=== PATIENT | female | born 1990 | race Caucasian/White ===

== ENCOUNTER 2022-12-23 08:22 | Observation (INO) ==
[2022-12-23] MEDS ORDERED: LACTATED RINGER'S 1,000 ML IV PRN (08:53)
[2022-12-23] MEDS ORDERED: TERBUTALINE SULFATE 1 MG/ML VIAL SQ ONE (09:04)
[2022-12-23 09:31] LABS: Hematocrit (blood only) 35.6 % (37.0-47.0); Hemoglobin 11.7 g/dl (12.0-16.0); Mean Corpuscular Hemoglobin 25.5 pg (25.0-34.0); Mean Corpuscular Hgb Conc 32.9 g/dL (32.0-36.0); Mean Corpuscular Volume 77.7 fL (80.0-100.0); Mean Platelet Volume 10.9 fL (9.4-12.4); Platelet Count 207 K/uL (130-400); RDW Coefficient of Variation 13.4 % (11.5-14.5); RDW Standard Deviation 37.7 fL (36.4-46.3); Red Blood Count 4.58 M/uL (4.20-5.40); White Blood Count 9.13 K/ul (4.8-10.8)
--- NOTE | 2022-12-23 12:16 | History & Physical Report ---
Date of Service December 23, 2022 Assessment & Plan (1) Unstable lie: Plan: Patient was prepared for external cephalic version, consented, given terbutaline, and was prepped for the procedure. Then ultrasound confirmed cephalic presentation. Then the patient was monitored by external monitor. Approximately 1 hour later, I returned to patient's room to recheck presentation of fetus. The fetus had moved to a breech presentation, with head in maternal RUQ. At this point, given the unstable lie, patient elected against an attempt at ECV, thinking the baby was likely to move again before delivery anyway. I scheduled a with Labor & Delivery 01/08, and we will plan to recheck position at that point. If cephalic, then might consider attempt at vaginal delivery, if breech might either consider going directly to or an attempt at ECV that day. Patient is agreeable with this plan. Advised that she present immediately to L&D if in labor, as we will need to confirm position to determine delivery plans. She is agreeable. Admission and Anticipated Discharge Date Admission Date: December 23, 2022 History of Present Illness Chief Complaint: unstable lie Primary Care Provider: RAMIRO Grider 32yo @ 38 11/28, scheduled for external cephalic version today. and Delivery Plans Obesity (BMI between 35-39 @ beginning of ) *Growth US @ 32 wks--efw >98, AC 90 repeat at 36 weeks *Weekly NSTs @ 36wks DELFIN 1 on colpo *Recommend PPX pap smear Rhogam given 10/22/22 - [place] covid x 2. no boosters, recommend. Allergies Allergy/AdvReac Type Severity Reaction Status Date / Time amoxicillin Allergy hives Verified 12/23/22 09:00 Penicillins Allergy hives Verified 12/23/22 09:00 Home Medications Medication Instructions Recorded Confirmed Type prenat.vits,vanessa,ltp-drsr-nmomi 1 tab PO DAILY 05/18/22 12/23/22 History sertraline 25 mg tablet (Zoloft) 25 mg PO DAILY 09/01/22 12/23/22 History Patient History Surgical History S/P wisdom tooth extraction Social History (Updated 05/18/22 @ 17:29 by Elizabeth Jain) Smoking Status: Never smoker Second Hand Exposure: No; Do You Dip or Chew Tobacco: No; Tobacco Cessation Education Requested by Patient: No Hx Alcohol Use: No Hx Substance Use: No Preferred Language: Occitan Communication Ability: Effective [facility] Medical Specialist Required: No Beliefs That Will Affect Care: None marital status: Single marital status details: Ruben (34) [phone] Current Living Situation: Family Current Living Situation Comment: Pt lives with her 3 Donavan ol[address]a [place], [place] current occupational status: employed current occupation: Admin Assist Other Information That Helps Us Care for You: No Feels Safe at Home: Yes Safety Concerns: Feels Safe At This Time Assistive Devices: None Physical Exam Physical Exam: FHT Cat 1 [place] none Limited bedside ultrasound: cephalic presentation, anterior/fundal placenta, + movement and + cardiac activity. Results & Data ([facility]) Vital Signs (Past 12 Hours) Vital Signs Temp Pulse Resp BP Pulse Ox O2 Del Method 12/23/22 11:02 110 H 99 12/23/22 10:57 94 12/23/22 10:57 105 H 12/23/22 10:57 94 H 94 12/23/22 10:52 113 H 92 12/23/22 10:47 128 H 93 12/23/22 10:42 108 H 95 12/23/22 10:39 99 H 93 12/23/22 10:37 107 H 93 12/23/22 10:32 134 H 93 12/23/22 10:31 148 H 94 12/23/22 10:27 136 H 93 12/23/22 10:25 136 H 92 12/23/22 10:22 121 H 92 12/23/22 10:17 124 H 94 12/23/22 10:14 131 H 94 12/23/22 10:12 133 H 93 12/23/22 10:07 133 H 94 12/23/22 10:06 132 H 94 12/23/22 10:02 134 H 94 12/23/22 10:00 135 H 92 12/23/22 09:57 152 H 96 12/23/22 09:55 138 H 93 12/23/22 09:52 118 H 95 12/23/22 09:49 148 H 93 12/23/22 09:47 148 H 95 12/23/22 09:43 156 H 94 12/23/22 09:42 157 H 95 12/23/22 09:37 143 H 96 12/23/22 09:28 96 H 126/77 12/23/22 08:34 101 H 121/78 12/23/22 08:34 36.8 C 18 Room Air Coding Level of Care Code 72263 Office/Outpt Visit, Est Diagnoses Unstable lie O32.0XX0
== END 2022-12-23 11:35 | disposition home or self-care (01) ==
LOC: OPB 08:22 → 4S1 08:23 → INTOOBSV 08:53

== ENCOUNTER 2022-12-28 23:08 | Inpatient (IN) ==
[2022-12-28] MEDS ORDERED: LACTATED RINGER'S 1,000 ML IV SCH (23:45)
--- NOTE | 2022-12-28 23:46 | History & Physical Report ---
Date of Service December 28, 2022 Assessment & Plan (1) Breech presentation: Plan: Breech confirmed with ultrasound she is definitely ruptured 4 cm recommend section section. The patient was counseled to the nature of the procedure including alternatives such as labor. Risks were discussed including bleeding infection injury to bowel bladder ureter vessels and even baby. Deep Vein thrombosis, pulmonary embolus discussed. Breakdown of incision reviewed. Deep vein thrombosis pulmonary embolus hernia and failure of the incision to heal were discussed Patient verbalized understanding of this and was given ample time to ask questions History of Present Illness Primary Care Provider: RAMIRO Grider SHAILESH Calculator Estimated Delivery Date Method Current WG Current Estimate 01/12/23 Ultrasound #1 37w 6d Other Estimates 12/29/22 LMP (Certain) 39w 6d LMP: 03/24/22 : 5 Full term: 3 Premature: 0 Total Number of Induced Abortions: 0 Total Number of Spontaneous Abortions: 1 Ectopics: 0 Multiple births: 0 Number of Living Children: 3 and Delivery Plans Obesity (BMI between 35-39 @ beginning of ) *Growth US @ 32 wks--efw >98, AC 90 repeat at 36 weeks *Weekly NSTs @ 36wks DELFIN 1 on colpo *Recommend PPX pap smear Rhogam given 10/22/22 - [place] covid x 2. no boosters, recommend. Unstable Lie - plan for CS 01/08/23 with Roberta Melissa assist (if breech) Allergies Allergy/AdvReac Type Severity Reaction Status Date / Time amoxicillin Allergy hives Verified 12/28/22 13:17 Penicillins Allergy hives Verified 12/28/22 13:17 Home Medications Medication Instructions Recorded Confirmed Type prenat.vits,vanessa,nit-vshg-odatk 1 tab PO DAILY 05/18/22 12/28/22 History sertraline 25 mg tablet (Zoloft) 25 mg PO DAILY 09/01/22 12/28/22 History Patient History Surgical History S/P wisdom tooth extraction Social History (Updated 05/18/22 @ 17:29 by Elizabeth Jain) Smoking Status: Never smoker Second Hand Exposure: No; Hx Alcohol Use: No Hx Substance Use: No Preferred Language: Czech Communication Ability: Effective [employer] [facility] Assistant Required: No Beliefs That Will Affect Care: None marital status: Single marital status details: Ruben (34) [phone] Current Living Situation: Significant Other Current Living Situation Comment: Pt lives with her 3 Donavan olvera [place], [place] current occupational status: employed current occupation: Admin Assist Other Information That Helps Us Care for You: No Feels Safe at Home: Yes Safety Concerns: Feels Safe At This Time Assistive Devices: None Review of Systems as per Subjective / HPI Physical Exam Constitutional: WD/WN, vitals as above well developed and well nourished Respiratory: normal respiratory effort, lungs clear to auscultation normal respiratory effort Cardiovascular: RRR, no murmur, no edema Gastrointestinal (Abdomen): normal bowel sounds, soft, nontender, no hepatosplenomegaly Results & Data ([facility]) Vital Signs (Past 12 Hours) Vital Signs Temp Pulse Resp BP 12/28/22 23:26 98.1 F 20 12/28/22 23:23 114 H 137/90 Coding Level of Care Code None Diagnoses Breech presentation O32.1XX0
--- NOTE | 2022-12-29 00:08 | Anesthesiology Consultation ---
Date of Service December 29, 2022 Assessment & Plan Chart Review Chart Review: Acceptable Risk for Surgery and Patient NOT seen in Pre Admission Testing plt 207 on 12/23/22 Consults Requested none History Surgery Operation Date: 12/29/22 00:15 Proposed Procedures p Section in LD - Bisi. Alberto Robbins MD, FACOG Height/Weight Height: 5 ft 3 in Weight: 105.687 kg Allergies Allergy/AdvReac Type Severity Reaction Status Date / Time amoxicillin Allergy hives Verified 12/28/22 13:17 Penicillins Allergy hives Verified 12/28/22 13:17 Medications Home Medications Medication Instructions Recorded Confirmed Last Taken prenat.vits,vanessa,ttq-lcxd-bupdg 1 tab PO DAILY 05/18/22 12/28/22 12/28/22 19:45 sertraline 25 mg tablet (Zoloft) 25 mg PO DAILY 09/01/22 12/28/22 12/28/22 19:45 Past Medical History no pmh Exercise / Class Metabolic Activity II 4-5 Yardwork/Stairs/Walk up hill Past Surgical History Surgical History S/P wisdom tooth extraction Past Anesthesia History No Hx of Anesthesia Complications and No Family Hx of Anesthesia Complications Social History Smoking Status: Never smoker Hx Alcohol Use: No Hx Substance Use: No Physical Exam Vital Signs Last Vital Signs Temp 36.7 C 12/28/22 23:26 Pulse 114 H 12/28/22 23:23 Resp 20 12/28/22 23:26 BP 137/90 12/28/22 23:23 Testing Laboratory Results 12/28/22 23:55 Electrocardiogram Findings: no T wave inversion
[2022-12-29] MEDS ORDERED: CITRIC ACID/SODIUM CITRATE 15 ML UDC ONE (00:11)
[2022-12-29] MEDS ORDERED: ONDANSETRON INJ 2 MG/ML 2 ML VIAL ONE (00:14)
[2022-12-29] MEDS ORDERED: fentaNYL citrate 100 MCG/2 ML VIAL ONE (00:14)
[2022-12-29] MEDS ORDERED: PHENYLEPHRINE HCL 10 MG/ML VIAL ONE (00:14)
[2022-12-29] MEDS ORDERED: MoRPHine SULFATE PF 1 MG/ML 10 ML AMP/VIAL ONE (00:14)
[2022-12-29] MEDS ORDERED: OXYTOCIN 10 UNITS/ML 10ML VIAL ONE (00:14)
[2022-12-29] MEDS ORDERED: CITRIC ACID/SODIUM CITRATE 15 ML UDC PO ONE (00:19)
[2022-12-29 00:26] LABS: Basophils # (auto) 0.03 K/uL (0-0.2); Basophils % (auto) 0.3 %; Eosinophils # (auto) 0.14 K/uL (0-0.50); Eosinophils % (auto) 1.3 %; Hematocrit (blood only) 35.2 % (37.0-47.0); Hemoglobin 11.2 g/dl (12.0-16.0); Immature Granulocytes # (auto) 0.05 K/uL (0.01-0.20); Immature Granulocytes % (auto) 0.5 %; Lymphocytes # (auto) 2.91 K/uL (1.2-3.4); Lymphocytes % (auto) 26.8 %; Mean Corpuscular Hemoglobin 25.3 pg (25.0-34.0); Mean Corpuscular Hgb Conc 31.8 g/dL (32.0-36.0); Mean Corpuscular Volume 79.6 fL (80.0-100.0); Monocytes # (auto) 0.89 K/uL (0.11-0.59); Monocytes % (auto) 8.2 %; Neutrophils # (auto) 6.84 K/uL (1.40-6.50); Neutrophils % (auto) 62.9 %; Platelet Count 220 K/uL (130-400); RDW Coefficient of Variation 13.6 % (11.5-14.5); Red Blood Count 4.42 M/uL (4.20-5.40); White Blood Count 10.86 K/ul (4.8-10.8)
[2022-12-29] MEDS ORDERED: SODIUM CHLORIDE 0.9% 250 ML IV PRN (00:28)
[2022-12-29] MEDS ORDERED: NALBUPHINE HCL INJ 10 MG/ML AMP IV PRN (01:12)
[2022-12-29] MEDS ORDERED: ePHEDrine sulfate 50 MG/ML AMP IV PRN (01:12)
[2022-12-29] MEDS ORDERED: ONDANSETRON INJ 2 MG/ML 2 ML VIAL IV PRN ×2 (01:12→19:13)
[2022-12-29] MEDS ORDERED: NALOXONE HCL 0.4 MG/1 ML VIAL/CARP IV PRN (01:12)
[2022-12-29] MEDS ORDERED: KETOROLAC 30 MG/ML VIAL IV PRN ×2 (01:12→19:13)
[2022-12-29] MEDS ORDERED: diphenhydrAMINE 50 MG/ML VIAL IV PRN ×2 (01:12→19:13)
[2022-12-29] MEDS ORDERED: MoRPHine SULFATE PF 1 MG/ML 10 ML AMP/VIAL INT SPINAL ONE (01:12)
[2022-12-29] MEDS ORDERED: NALOXONE HCL 0.08 MG in SYRINGE 1.8 ML IV PRN (01:12)
[2022-12-29] MEDS ORDERED: NALOXONE HCL 1 MG in SODIUM CHLORIDE 0.9% 1000ML 1,000 ML IV PRN (01:12)
[2022-12-29] MEDS ORDERED: PROMETHAZINE HCL 6.25 MG in SODIUM CHLORIDE 0.9% 50 ML IV PRN (01:12)
[2022-12-29] MEDS ORDERED: LACTATED RINGER'S 500 ML IV PRN (01:12)
[2022-12-29] MEDS ORDERED: MoRPHine SULFATE 2 MG/ML CARP IV PRN (01:12)
[2022-12-29] MEDS ORDERED: SODIUM CHLORIDE 0.9% 1000ML 1,000 ML IV SCH (01:15)
[2022-12-29] MEDS ORDERED: NO NARCOTICS OR SEDATIVES SCH (01:15)
[2022-12-29] MEDS ORDERED: DC INTRASPINAL MORPHINE SCH (01:15)
--- NOTE | 2022-12-29 01:56 | Operative Report ---
PG Post Operative Report Pre & Post Diagnosis Operation Date: 12/29/22 00:15 <No data on this case meets the specified criteria> I identified the patient and participated in the time-out.: Yes Procedure Operation Date: 12/29/22 00:15 Actual Procedures p Section in LD for the of (Bilateral) - Deja Robbins MD, FACOG Surgeon Deja Robbins MD, FACOG [place] Cutter Misha Vernon Estimated Blood Loss 500 Findings Consistent with Post-Op Diagnosis Specimens Cord blood cord gas Description of Procedure Regional anesthetic had been given by anesthesia patient was prepped and draped with a leftward tilt preoperative antibiotics had been given in appropriate timing by anesthesiology. Once the prep was allowed to fully dry timeout was performed. Pickups with teeth were used to test the incision area was found to be adequate for incision as the patient did not feel sharp pain. Scalpel was used to make a Pfannenstiel incision on the lower abdomen. We then cut through the subcutaneous fat down to the level of the anterior rectus sheath fascia this was cut in the midline and then extended laterally with the curved Maya scissors. At this stage we then placed 2 Diana clamps on the anterior aspect of the fascia. Using the curved Maya's we are able to dissect the fascia superiorly away from the rectus muscles. Care was taken to maintain hemostasis. Diana clamps were then placed to the inferior aspect of the anterior sheath of the fascia. Fascia was then dissected away from the rectus muscles inferiorly towards the pubic bone. A Diana was then placed in the midline both inferiorly and superiorly. This was to allow exposure by retraction rectus muscles were in the midline with were then able to cut through the peritoneum and then enter the peritoneal cavity. Opening was enlarged to allow exposure of the peritoneal cavity both superiorly and inferiorly. Once adequate space was obtained a bladder retractor was placed to expose the lower segment Metzenbaums were used to dissect the bladder flap inferiorly away from the uterus. This was done sharply bladder retractor was then repositioned to expose the lower segment of the uterus Fresh scalpel was used to make a low transverse incision on the uterus. Uterus was then entered bluntly with the operators finger, membranes ruptured and the opening was enlarged using the operators fingers bluntly pulling superiorly and inferiorly to allow exposure. Baby was in altagracia breech position in the breech was flexed and then back turned anterior baby was delivered by pressure from the library circulation assistant on the abdomen and gentle traction the legs were then delivered arms were swept towards the chest and then head was easily delivered without extension live vigorous male infant. Fluid was clear cord clamped and cut cord gases obtained cord blood obtained baby handed to pediatrics. Placenta removed was removed with traction we ensure the entire placenta was removed with a moist lap sponge into the uterus Uterus was then exteriorized. IV Pitocin had been started by anesthesia tone improved there were no extensions the uterus was then closed using 0 Monocryl in a 2 layer closure the first layer closed in a running locked fashion from left to right and then a second closure from left to right in a running nonlocked fashion. At this stage hemostasis was excellent. Uterus was placed back in the peritoneal cavity with suction irrigation out and inspection of the uterus at this stage revealed excellent hemostasis Retractors were removed urine color was clear at this stage of the case we inspected the rectus muscles they were hemostatic fascia was closed with 0 Vicryl subcutaneous fat was irrigated and closed with 3-0 Vicryl skin closed with 4-0 subcuticular Monocryl I attest to the content of the Intraoperative Record and any orders documented therein. Any exceptions are noted below. OB Procedure Charges 92138
[2022-12-29] MEDS ORDERED: HYDROCORTISONE ACETATE 25 MG SUPP PR PRN (01:58)
[2022-12-29] MEDS ORDERED: DIPHTHERIA/TETANUS/PERTUSSIS 0.5mL SYR/VIAL (Age 7+yrs) IM ONE (01:58)
[2022-12-29] MEDS ORDERED: BENZOCAINE 20% AER SPR 82.5 GM CAN EXT PRN (01:58)
[2022-12-29] MEDS ORDERED: SENNA 8.6 MG TAB PO PRN (01:58)
[2022-12-29] MEDS ORDERED: MAGNESIUM HYDROXIDE SUSP 30 ML UDC PO PRN (01:58)
--- NOTE | 2022-12-29 02:00 | Anesthesiology Progress Note ---
Date of Service December 29, 2022 Anesthesia Post Procedure Vital Signs Vital Signs: Temp Pulse Resp BP 12/28/22 23:26 36.7 C 20 12/28/22 23:23 114 H 137/90 Transfer of Care Handoff Completed per policy Notes Mental Status: alert / awake / arousable Patient Amnestic to Procedure: No Nausea / Vomiting: adequately controlled Pain: adequately controlled Airway Patency, RR, SpO2: stable & adequate BP & HR: stable & adequate Hydration State: stable & adequate Neuraxial Anesthesia: was administered and sensory block is resolving Anesthetic Complications: no major complications apparent and Pt Satisfied with anesthetic care
[2022-12-29 04:05] LABS: Base Excess Cord Venous Blood 3.4 mEq/L (-7.7-1.9); Cord Venous Blood HCO3 30 mmol/L (18.4-26.8); Cord Venous Blood PCO2 55 mmHg (30.4-57.2); Cord Venous Blood PO2 28 mmHg (14.1-43.3); Cord Venous Blood pH 7.35 (7.20-7.44); O2 Saturation Cord Venous Bld < 60.0 % (<68)
[2022-12-29 04:06] LABS: Base Excess Cord Arterial Bld -1.8 mEq/L (-9-1.8); CO2 Cord Arterial Blood 79 mmHg (39.1-73.5); HCO3 Cord Arterial Blood 29 mmol/L (19.7-28.5); Oxygen Sat Cord Arterial Blood < 60.0 % (<60); PO2 Cord Arterial Blood 17 mmHg (4.1-31.7); pH Cord Arterial Blood 7.17 (7.1-7.38)
[2022-12-29] MEDS: OXYTOCIN 20 UNITS in LACTATED RINGER'S 1,000 ML IV SCH ×2 (04:16→12:06)
[2022-12-29] MEDS: FERROUS SULFATE 325 MG TAB PO SCH (08:02)
[2022-12-29] MEDS: DOCUSATE SODIUM 100 MG CAP PO SCH ×2 (08:02→19:30)
[2022-12-29] MEDS: SIMETHICONE 80 MG CHEW PO SCH ×4 (08:02→19:29)
[2022-12-29] MEDS: PRENATAL VITAMIN 1 TAB PO SCH (08:02)
[2022-12-29] MEDS: SERTRALINE HCL 50 MG TABLET PO SCH (08:03)
[2022-12-29] MEDS ORDERED: LACTATED RINGER'S 1,000 ML IV SCH (18:00)
[2022-12-29] MEDS ORDERED: diphenhydrAMINE Capsule 25 MG CAP PO PRN (19:13)
[2022-12-29] MEDS ORDERED: PROMETHAZINE HCL 25 MG in SODIUM CHLORIDE 0.9% 50 ML IV PRN (19:13)
[2022-12-29] MEDS: oxyCODONE/ACETAMINOPHEN 5mg/325mg TAB PO PRN (19:30)
[2022-12-30] MEDS: oxyCODONE/ACETAMINOPHEN 5mg/325mg TAB PO PRN ×5 (01:57→23:31)
--- NOTE | 2022-12-30 05:47 | Obstetrical Progress Note ---
Date of Service <Kelly Boyer, DO - Last Filed: 12/30/22 07:23> December 30, 2022 Assessment & Plan <Kelly Boyer, DO - Last Filed: 12/30/22 07:23> (1) Status post section: Plan Clark has been dc, continue OOB and ambulation and progress diet as tolerated <Kathi Cason, DO - Last Filed: 12/30/22 07:30> (1) Status post section: Subjective <Kelly Boyer, DO - Last Filed: 12/30/22 07:23> Diane is a 32 y/o female who is POD #1 following delivery at 38 weeks. She reports feeling well overall this morning. Mild abdominal cramping, pain well managed on analgesics. Voiding. Tolerating meals overnight and able to ambulate some. Is passing gas and no bowel movement. Has some p ersistent lochia with some improvement this morning. Currently breast feeding. Review of Systems Denies fever, chills, sweats Denies shortness of breath, difficulty breathing, chest pain, palpitations, chest pressure. Denies breast pain. Denies dysuria. Denies headache or changes in vision. Physical Exam <Kelly Boyer, DO - Last Filed: 12/30/22 07:23> General: Alert, oriented. No acute distress. Cardiac: Regular rate and rhythm, no murmurs/rubs/gallops. Respiratory: Clear to auscultation bilaterally a/p, no wheezes/rales/rhonchi. No increased work of breathing. Symmetrical chest rise. No respiratory distress. Abdomen: Soft, nontender, nondistended. Bowel sounds present. Uterus: Uterine fundus firm, palpable 2 cm below umbilicus. Surgical dressing clean and dry. Lower Extremities: No lower extremity edema or swelling. No deep calf pain. Deyanira's negative bilaterally. Results & Data ([facility]) <Kelly Boyer, DO - Last Filed: 12/30/22 07:23> Vital Signs (Past 12 Hours) Vital Signs Temp Pulse Resp BP Pulse Ox O2 Del Method 12/29/22 23:19 36.7 C 81 18 108/69 92 Room Air 12/29/22 19:43 18 95 12/29/22 19:43 36.9 C 86 18 114/73 95 Room Air 12/29/22 18:26 16 96 12/29/22 18:04 16 96 <Kathi Cason DO - Last Filed: 12/30/22 07:30> Co-Signing Physician Notes Resident Physician Supervision Note: I was present with Dr. Boyer during the history and exam. I discussed the case with the resident and agree with the findings and plan as documented in the note. Any exceptions or clarifications are listed here: POD#1 doing well. Goals of ambulation today. Documented By: Kathi Cason DO Resident Activity Tracking <Kelly Byoer, - Last Filed: 12/30/22 07:23> Resident Involvement: Resident Care Provided Care Provided: OB Delivery (post )
[2022-12-30 06:41] LABS: Basophils # (auto) 0.01 K/uL (0-0.2); Basophils % (auto) 0.1 %; Eosinophils # (auto) 0.09 K/uL (0-0.50); Eosinophils % (auto) 0.7 %; Hematocrit (blood only) 30.7 % (37.0-47.0); Hemoglobin 9.9 g/dl (12.0-16.0); Immature Granulocytes # (auto) 0.05 K/uL (0.01-0.20); Immature Granulocytes % (auto) 0.4 %; Lymphocytes # (auto) 2.05 K/uL (1.2-3.4); Lymphocytes % (auto) 16.7 %; Mean Corpuscular Hemoglobin 25.5 pg (25.0-34.0); Mean Corpuscular Hgb Conc 32.2 g/dL (32.0-36.0); Mean Corpuscular Volume 79.1 fL (80.0-100.0); Mean Platelet Volume 11.2 fL (9.4-12.4); Monocytes # (auto) 0.94 K/uL (0.11-0.59); Monocytes % (auto) 7.7 %; Neutrophils # (auto) 9.12 K/uL (1.40-6.50); Neutrophils % (auto) 74.4 %; Platelet Count 202 K/uL (130-400); RDW Coefficient of Variation 13.8 % (11.5-14.5); RDW Standard Deviation 39.2 fL (36.4-46.3); Red Blood Count 3.88 M/uL (4.20-5.40); White Blood Count 12.26 K/ul (4.8-10.8)
[2022-12-30] MEDS: SERTRALINE HCL 50 MG TABLET PO SCH (08:20)
[2022-12-30] MEDS: DOCUSATE SODIUM 100 MG CAP PO SCH ×2 (08:21→21:15)
[2022-12-30] MEDS: FERROUS SULFATE 325 MG TAB PO SCH (08:21)
[2022-12-30] MEDS: SIMETHICONE 80 MG CHEW PO SCH ×4 (08:21→21:15)
[2022-12-30] MEDS: IBUPROFEN 600 MG TAB PO PRN ×4 (08:21→23:31)
[2022-12-30] MEDS: PRENATAL VITAMIN 1 TAB PO SCH (08:21)
[2022-12-30] MEDS ORDERED: bisacodyL 5 MG TABEC PO SCH (20:00)
[2022-12-31] MEDS ORDERED: bisacodyL 10 MG SUPP PR PRN (01:53)
--- NOTE | 2022-12-31 05:29 | Obstetrical Progress Note ---
Date of Service <Kelly BoyerDO - Last Filed: 12/31/22 06:19> December 31, 2022 Assessment & Plan <Kelly Veras DO Merlin - Last Filed: 12/31/22 06:19> (1) Status post section: - continue OOB and ambulation and progress diet as tolerated - Plan for 6 week post f/u <Monica Falcon MD - Last Filed: 12/31/22 06:49> (1) Status post section: Subjective <Kelly BoyerDO - Last Filed: 12/31/22 06:19> Diane is a 32 y/o female who is POD #2 following delivery at 38 weeks. She reports feeling well overall this morning. Mild abdominal cramping, pain well managed on analgesics. Voiding. Tolerating meals overnight and able to ambulate some. Is passing gas and no bowel movement. Has some persistent lochia with some improvement this morning. Currently breast feeding. Review of Systems Denies fever, chills, sweats Denies shortness of breath, difficulty breathing, chest pain, palpitations, chest pressure. Denies breast pain. Denies dysuria. Denies headache or changes in vision. Physical Exam <Kelly SOni Boyer DO - Last Filed: 12/31/22 06:19> General: Alert, oriented. No acute distress. Cardiac: Regular rate and rhythm, no murmurs/rubs/gallops. Respiratory: Clear to auscultation bilaterally a/p, no wheezes/rales/rhonchi. No increased work of breathing. Symmetrical chest rise. No respiratory distress. Abdomen: Soft, nontender, nondistended. Uterus: Uterine fundus firm, palpable 2 cm below umbilicus. Surgical scar non- erythematous without discharge. Lower Extremities: No lower extremity edema or swelling. No deep calf pain. Results & Data ([facility]) <Kelly IngramOni Boyer DO - Last Filed: 12/31/22 06:19> Vital Signs (Past 12 Hours) Vital Signs Temp Pulse Resp BP Pulse Ox O2 Del Method 12/30/22 23:30 36.7 C 85 18 99/65 L 96 Room Air 12/30/22 20:45 36.6 C 95 H 18 101/68 95 Room Air <Monica Falcon MD - Last Filed: 12/31/22 06:49> Co-Signing Physician Notes Resident Physician Supervision Note: I interviewed and examined the patient. Discussed with Dr. Boyer and agree with findings and plan as documented in the note. Any exceptions or clarifications are listed here: [ ] Documented By: Monica Falcon MD, FACOG
[2022-12-31 06:12] LABS: Hematocrit (blood only) 28.3 % (37.0-47.0); Hemoglobin 9.1 g/dl (12.0-16.0)
[2022-12-31] MEDS: oxyCODONE/ACETAMINOPHEN 5mg/325mg TAB PO PRN (07:20)
[2022-12-31] MEDS: IBUPROFEN 600 MG TAB PO PRN (07:21)
[2022-12-31] MEDS: DOCUSATE SODIUM 100 MG CAP PO SCH (08:26)
[2022-12-31] MEDS: PRENATAL VITAMIN 1 TAB PO SCH (08:26)
[2022-12-31] MEDS: FERROUS SULFATE 325 MG TAB PO SCH (08:26)
[2022-12-31] MEDS: SIMETHICONE 80 MG CHEW PO SCH ×2 (08:26→13:00)
[2022-12-31] MEDS: SERTRALINE HCL 50 MG TABLET PO SCH (08:27)
--- NOTE | 2023-01-01 08:08 | Discharge Summary ---
Date of Service January 01, 2023 Admission HPI Per Admitting Provider SHAILESH Calculator Estimated Delivery Date Method Current WG Current Estimate 01/12/23 Ultrasound #1 37w 6d Other Estimates 12/29/22 LMP (Certain) 39w 6d LMP: 03/24/22 : 5 Full term: 3 Premature: 0 Total Number of Induced Abortions: 0 Total Number of Spontaneous Abortions: 1 Ectopics: 0 Multiple births: 0 Number of Living Children: 3 and Delivery Plans Obesity (BMI between 35-39 @ beginning of ) *Growth US @ 32 wks--efw >98, AC 90 repeat at 36 weeks *Weekly NSTs @ 36wks DELFIN 1 on colpo *Recommend PPX pap smear Rhogam given 10/22/22 - [place] covid x 2. no boosters, recommend. Unstable Lie - plan for CS 01/08/23 with Roberta Melissa assist (if breech) Admission Exam (Per Admitting) Constitutional WD/WN, vitals as above well developed and well nourished Respiratory normal respiratory effort, lungs clear to auscultation normal respiratory effort Cardiovascular RRR, no murmur, no edema Gastrointestinal (Abdomen) normal bowel sounds, soft, nontender, no hepatosplenomegaly Discharge Data Consultations 12/28/22 23:43 Consult Anesthesiology Stat Procedures Performed Operation Date: 12/29/22 00:15 Actual Procedures p Section in LD for the of a viable male child at 0118(Bilateral) - Deja Robbins MD, FACOG Hospital Course (1) Status post section: - continue OOB and ambulation and progress diet as tolerated - Plan for 6 week post f/u Supervising Physician Co-Signing Physician Notes Resident Physician Supervision Note: I interviewed and examined the patient. Discussed with Dr. Boyer and agree with findings and plan as documented in the note. Any exceptions or clarifications are listed here: [ ] Documented By: Monica Falcon MD, FACOG Coding Level of Care Code None Diagnoses Status post section Z98.891
== END 2022-12-31 15:05 | disposition home or self-care (01) | DRG 788 ==
LOC: OPB 23:08 → 4S1 23:10 → 4E2 12-29 05:03